=== PATIENT | female | born 1995 | race Caucasian/White ===

== ENCOUNTER 2017-11-20 16:28 | Emergency (ER) | payer OTHER ==
[~2017-11-20] VITALS: Ht 165.1 cm; Wt 70.5 kg
[~2017-11-20 16:28] MED LIST: CARAFATE S1 GM/10 ML PO; MONONESSA 35 MC1 TA1 PO; PROTONIX20 MG PO
[2017-11-20 16:31] VITALS: BP 134/75; TEMP 97.6
[2017-11-20 17:56] VITALS: PULSE 90
== END 2017-11-20 18:03 | disposition home or self-care (01) ==
LOC: COL.ER 16:28
DX: S71.112A Laceration without foreign body, left thigh, initial encounter (principal); Z23 Encounter for immunization; Z88.1 Allergy status to other antibiotic agents; W26.8XXA Contact with other sharp object(s), not elsewhere classified, initial encounter

== ENCOUNTER 2017-11-30 11:10 | Emergency (ER) | payer OTHER ==
[2017-11-30 11:20] VITALS: BP 121/68; PULSE 85; TEMP 97.9
== END 2017-11-30 11:21 | disposition home or self-care (01) ==
LOC: COL.ER 11:10
DX: S71.112D Laceration without foreign body, left thigh, subsequent encounter (principal); X58.XXXD Exposure to other specified factors, subsequent encounter